=== PATIENT | male | born 1980 | race Caucasian/White ===

== ENCOUNTER 2022-11-20 08:45 | Day surgery (SDC) | payer OTHER ==
[2022-11-19 15:15] LABS: Potassium 3.9 mEq/L (3.5-5.1)
[2022-11-20] MEDS ORDERED: Ringers Lactate 1,000 ML IV ONE (09:09)
[2022-11-20] MEDS ORDERED: CEFAZOLIN SODIUM 2 GM/VIAL ONE (09:09)
[2022-11-20] MEDS ORDERED: FENTANYL CITR 100 MCG/2 ML ONE ×2 (10:42→12:09)
[2022-11-20] MEDS ORDERED: MIDAZOLAM HCL 2 MG/2 ML INJ ONE ×2 (10:43→12:55)
[2022-11-20] MEDS ORDERED: propofoL 200 MG/20 ML VIAL IV ONE ×2 (10:43→11:54)
[2022-11-20] MEDS ORDERED: ONDANSETRON 4 MG/2 ML VIAL ONE (10:43)
[2022-11-20] MEDS ORDERED: LIDOCAINE 2% MPF 5 ML VIAL ONE (10:44)
[2022-11-20] MEDS ORDERED: ROCURONIUM 50 MG/5 ML VIAL IV ONE (10:45)
[2022-11-20] MEDS ORDERED: GLYCOPYRROLATE 0.2 MG/ML SYR ONE (10:46)
[2022-11-20] MEDS ORDERED: NEOSTIGMINE 1 MG/ML -10 ML VIAL ONE (10:47)
[2022-11-20] MEDS ORDERED: BUPIVACAINE 0.25% PF 10 ML VIAL ONE (10:54)
[2022-11-20] MEDS ORDERED: dexAMETHasone 4 MG/ML VIAL ONE (12:05)
[2022-11-20] MEDS ORDERED: KETOROLAC 30 MG/ML INJ ONE (12:47)
--- NOTE | 2022-11-20 13:03 | P.OP ---
Preoperative diagnosis: Umbilical Hernia Postoperative diagnosis: Umbilical Hernia Primary procedure: Laparoscopic Umbilical Hernia Repair with mesh Anesthesia: GETA + Local Estimated blood loss: <5cc Specimen: adipose Findings: incarcerated adipose - preperitoneal / omental Complications: None Implants: Bard Ventralite ST 11.4 cm Round, Sorbafix tacks x 45 Transferred to: Recovery Room Condition: Good
[2022-11-20] MEDS ORDERED: HYDROCODONE/APAP 10/325 TAB PO ONE (13:54)
[2022-11-20] MEDS ORDERED: HYDROCODONE/APAP 10/325 TAB ONE (13:54)
--- NOTE | 2022-11-20 13:58 | EKG ---
Test Date: 2022-11-19 Test Time: 14:49:35 Professor Of Biblical Studies: LES MEASUREMENT RESULTS: Intervals: Rate: 80 OR: 144 QRSD: 92 QT: 370 QTc: 426 Jber: P: 56 OR: 144 QRS: 66 T: 42 INTERPRETIVE STATEMENTS: Normal sinus rhythm Normal ECG No previous ECG available for comparison Electronically Signed On 11-20-22 13:56:11 CDT by Rafael Elizabeth
[2022-11-20 14:05] VITALS: BP 123/88; TEMP 97.4; O2SAT 94
--- NOTE | 2022-11-20 16:00 | OP ---
Date of Procedure: 11/20/2022 Surgeon: Femi Harry MD, Preoperative Diagnosis: Umbilical hernia. Postoperative Diagnosis: Umbilical hernia. Procedure: Laparoscopic umbilical hernia repair with mesh. Anesthesia: General endotracheal plus local with 0.25% Marcaine. Estimated Blood Loss: 5 cc. Specimen: Adipose tissue. Findings: Incarcerated adipose tissue, both preperitoneal and omental. Complications: None. Implants: Bard Ventralight ST mesh with Echo Positioning System 11.4 cm round mesh utilized. SorbaF ix absorbable fixation tacks x45 utilized. Disposition: The patient was transferred to the recovery room in good condition. Procedure In Detail: After informed consent was obtained, patient was brought to the operating room, prepped and draped in the usual sterile fashion after adequate anesthesia was achieved. I anestheti zed an area of the left upper quadrant down to subcutaneous tissues. 5 mm 0-degree optical trocar wa s introduced into the abdomen without evidence of complication. Insufflation was obtained to 15 mmHg at this time. There was no injury to vital structures in the abdomen. Additional trocar was placed in the left mid abdomen. This was similarly anesthetized and sharply incised and a 12 mm trocar was placed under direct visualization without evidence of complication. I then proceeded to use the Lig aSure device to take down the preperitoneal fat and omentum which was incarcerated with an approximat sivan 1.5 cm umbilical defect and returned to the normal anatomic space. I then swept back the preperi toneal fat using the LigaSure device to both the falciform ligament and inferiorly as well to allow f or an appropriate landing zone. I then brought the Endo Stitch with an 0 V-Loc suture and closed the umbilical defect, imbricating the hernia sac in a running fashion with good approximation of tissues . At this point, I then deployed the 11.[address] mesh with Echo Positioning System t hrough a separate stab incision at the supraumbilical position after appropriately anesthetizing the skin, the balloon was deployed. I then secured the mesh to the anterior abdominal wall using SorbaFi x absorbable fixation tacks. I removed the balloon deployment system, found it to be intact on back table. I then deployed a second crown. A total of 45 tacks utilized to secure the mesh to the anter ior abdominal wall without evidence of complication. No hemostatic measure was required. At this po int, I closed the 12 mm trocar site using a Kamar-Nilda suture passer with 0 Vicryl suture in int errupted fashion with good approximation of tissues. The abdomen was completely desufflated under di rect visualization without evidence of complication. Remainder of trocars were removed. All skin si isabel were then copiously irrigated, and closed with a 4-0 Monocryl in a running fashion. Dermabond wa s placed over top. The patient tolerated the procedure well without evidence of any complication and transferred to PACU in good condition. All counts were correct at the end of the case. USHA/MARIPOSA Voice ID: [id number] Report ID: [id number]
== END 2022-11-20 14:06 | disposition home or self-care (01) ==
LOC: OR 08:45
PROVIDERS: ATTEND Surgery
PROC: 0WUF4JZ Supplement Abdominal Wall with Synthetic Substitute, Percutaneous Endoscopic Approach (ICD-10-PCS; principal; 2022-11-20 11:45)
DX: K42.9 Umbilical hernia without obstruction or gangrene (principal); K21.9 Gastro-esophageal reflux disease without esophagitis; I10 Essential (primary) hypertension; E78.00 Pure hypercholesterolemia, unspecified
CPT/HCPCS: 36415; 80048; 93005; C1781; J1100; J2001; J2250; J2405; J2704; J2710; J3010; J7120